=== PATIENT | male | born 1945 | race Caucasian/White ===

== ENCOUNTER 2018-11-19 13:39 | Inpatient (IN) ==
[2018-11-19 15:14] LABS: BASO# 0.03 X1000 (0.0-0.2); BASO% 0.5 % (0.0-0.8); EOS# 0.24 X1000 (0.0-0.7); EOS% 3.9 % (0.0-10.0); HEMATOCRIT 44.1 % (42.0-52.0); HEMOGLOBIN 14.8 g/dL (14.0-18.0); LYMPH# 2.08 X1000 (1.2-3.4); MCH 29.7 PG (27-31); MCHC 33.6 g/dL (33-37); MCV 88.4 FL (81-99); MONO# 0.85 X1000 (0.11-0.59); MONO% 13.9 % (1.7-9.3); MPV 10.9 FL (7.4-10.4); NEUT# 2.92 X1000 (1.4-6.5); NEUT% 47.7 % (42.2-75.2); PLT 142 X1000 (130-400); RBC 4.99 XMIL (4.7-6.1); RDW 12.7 % (11.5-14.5); WBC 6.12 X1000 (4.8-10.8)
[2018-11-19 15:26] LABS: INR 0.93; PROTIME 13.2 Seconds (11.0-16.0)
[2018-11-19 15:30] LABS: AGAP 10; BUN 16 mg/dL (8-22); C REACTIVE PROT QUANT 0.93 mg/L (0.00-5.00); CALCIUM 8.7 mg/dL (8.8-10.2); CHLORIDE 103 mmol/L (98-107); COSMO 278; CREATININE 0.7 mg/dL (0.7-1.2); ESTIMATED GFR > 60; GLUCOSE 94 mg/dL (70-104); POTASSIUM 4.1 mmol/L (3.5-5.1); SODIUM 139 mmol/L (136-145); TCO2 26 mmol/L (25-35)
[2018-11-19 16:22] LABS: SED RATE 4 mm/hr (0-15)
[2018-11-19] MEDS: DILAUDID IV PRN ×2 (16:31→20:03)
[2018-11-19] MEDS: NS 1,000 ML IV SCH (16:31)
[2018-11-19] MEDS: LEVAQUIN 500 MG/D5W 500 MG/100 ML IVPB IV SCH (20:03)
[2018-11-19] MEDS: LOVENOX SUBQ SCH (20:03)
--- NOTE | 2018-11-19 21:33 | HISTORY AND PHYSICAL ---
CHIEF COMPLAINT: Intractable left testicular pain since 3 weeks ago. HPI: He is 73-year-old white gentleman basically came in my office on 2018 and 11/11/2018. He is complaining of left testicular pain. He has moderate hydrocele. He was treated initially epididymitis. He was given anti-inflammatory and Levaquin. He fails to improve came back. Followup ultrasound of the scrotum showed no torsion, moderate hydrocele. The pain is just above the testicle. It is not reproducible and he was sent home on Ultracet and referred to Dr. Medley. Dr. Medley scheduled for outpatient surgery center for the further evaluation and in the meantime the surgery was canceled. Pain was excruciating. In between he was given [place] 1 pill 3 times daily and he has been taking 5 pills a day, not able to walk. The symptoms are out of proportion to the objective findings. The etiology is not clear. Subsequently was admitted to the hospital for pain control, IV antibiotics and further evaluation. Dr. Medley was consulted. As a result hospital admission was warranted. PAST MEDICAL HISTORY: BPH, hypertension, hyperlipidemia, metabolic syndrome, kidney stones, testicular hydrocele bilaterally left worse than the right side, elevated PSA biopsy was negative by Dr. Hedrick in 2012. PAST SURGICAL HISTORY: Sinus surgery, tonsillectomy, open gallbladder surgery, cataract surgery in left side. MEDICATIONS: Lipitor 40 daily, Levaquin 500 daily, losartan 50 daily. He was given [place] and sulindac, Flomax 0.4 daily. ALLERGIES: Not known. SOCIAL HISTORY: He is 2nd time for last 2 years 2 children, retired from [employer] no smoking no alcohol. FAMILY HISTORY: Father of cancer not known. Mom of heart failure at 70. HEALTH MAINTENANCE: Pneumococcal vaccine 2018, shingles 2014, last physical in March 2018, colonoscopy [address] Randall. REVIEW OF SYSTEMS: HEENT: No headache. No vision problem. No earache. No sore throat. Neck: No goiter. No lymphadenopathy. No bruit. Cardiopulmonary: No chest pain, shortness of breath, PND, orthopnea. GI: Open gallbladder surgery. No abdominal pain, nausea, vomiting. : No history of hesitancy, frequency dysuria. Left testicular pain, no skin rashes. No swelling of legs. No joint pain. Neuro: No focal symptoms or weakness. PHYSICAL EXAMINATION: Temperature is 97 degrees, pulse is 62, blood pressure is 142/50, on room air 98%. HEENT: Atraumatic, normocephalic. Pupils equal, reactive to light. TMs are normal. Nose and throat within normal limits. NECK: Supple. No lymphadenopathy. No goiter. CHEST: Bilateral air entry. HEART: Sounds are regular. BELLY: Soft, nontender, good bowel sounds. Left testicle pain with moderate hydrocele with transillumination present. NEURO: Nonfocal. INVESTIGATIONS: CBC is normal, sedimentation rate is 4, PT/INR is normal. SMA 7 is normal. CRP is normal. ASSESSMENT AND PLAN: 1. A 73-year-old white male admitted to the hospital intractable left testicle pain, etiology is not clear. Will also get a CT of the abdomen and pelvis. 2. IV fluids. 3. Ultrasound of the scrotum. 4. Deep vein thrombosis, gastrointestinal prophylaxis with Lovenox and Protonix. Will reconcile home medications. Dr. Medley consult and will follow up. cc: Tim Díaz MD MTDD
[2018-11-20] MEDS: BENADRYL IV PRN ×2 (06:28→23:31)
--- NOTE | 2018-11-20 07:20 | CONSULTATION ---
DATE OF CONSULTATION: 11/20/2018 CHIEF COMPLAINT: Left testicular pain for the past 1 month. HISTORY OF PRESENT ILLNESS: This is a 73-year old with BPH, hypertension, hyperlipidemia, history of nephrolithiasis, who presented to Urology office last week complaining of left scrotal pain. He had previously been seen by his primary care physician back in early October complaining of left testicular pain after having intercourse with his . The patient was given NSAIDs and Levaquin at that time. However, he never had any improvement in his pain and re- presented to his PCP's office on 11/11/2018, and was given pain medication, which still did not allow for complete resolution of his discomfort. He had an ultrasound performed at his PCP's office showed hydroceles bilaterally with maybe a possible right epididymal cysts. The patient was scheduled to undergo bilateral hydrocelectomy and removal of right spermatocele at the surgery center yesterday, but due to the weather the Surgery Center was closed, his procedure was canceled. His primary care doctor admitted him to the hospital for pain medication, antibiotics in preparation for operative intervention on . The patient was evaluated last night, and was having minimal discomfort at that time. This morning, patient denies any pain since approximately 8 o'clock last night, and he says it only hurts really when he is ambulatory or when he stands up. When he is lying down, he denies any pain. He denies any issues with voiding. Denies hematuria, dysuria, urgency, or frequency. Denies any fevers or chills or changes in scrotal swelling. PAST MEDICAL HISTORY: 1. BPH. 2. Hypertension. 3. Hyperlipidemia. 4. Nephrolithiasis. 5. Bilateral hydroceles. PAST SURGICAL HISTORY: 1. Sinus surgery. 2. Tonsillectomy. 3. Gallbladder surgery. 4. Cataract surgery. 5. Cystoscopy and bilateral retrograde pyelograms. MEDICATIONS: 1. Lipitor 40 mg daily. 2. Levaquin 500 mg daily. 3. Losartan 50 mg daily. 4. [place]. 5. Flomax 0.4 mg. DRUG ALLERGIES: No known drug allergies. SOCIAL HISTORY: Denies smoking or alcohol use. FAMILY HISTORY: Denies family history of prostate cancer or nephrolithiasis. REVIEW OF SYSTEMS: Twelve-point review of systems was performed. All pertinent positives and negatives in HPI. PHYSICAL EXAMINATION: Vital Signs: Nine, temperature 98.5 degrees, heart rate 65, blood pressure 151/68, oxygen saturation 96% on room air. General: No acute distress. Resting comfortably in bed. Alert and oriented x3. Pulmonary: Good respiratory effort without audible wheezing or rales. Cardiovascular: Regular rate and rhythm. No evidence of lower extremity edema. Abdomen: Soft, nontender, and nondistended. No palpable masses or hepatosplenomegaly. : Normal phallus and no evidence of any penile lesions, meatus orthotopic. Bilateral testicles palpated with moderate hydroceles bilaterally. Seems like right is greater than left. No tenderness to palpation of the scrotum. No palpable testicular tumors. No skin changes or tethering of his skin. HEENT: Normocephalic, atraumatic. Pupils equal, round, reactive to light. Skin: No obvious skin lesions or rashes. Neurologic: Gross motor and sensory intact. Musculoskeletal: No palpable musculoskeletal abnormalities. LABS: White blood cell count 6.1, hemoglobin 14.8, hematocrit 44.1, platelets 142,000. Sodium 139, potassium 4.1, chloride 103, bicarb 26, BUN 16, creatinine 0.7, glucose 94 , C-reactive protein 0.93. ASSESSMENT AND PLAN: Mr. Arias is a 73-year-old with hypertension, hyperlipidemia, nephrolithiasis, benign prostatic hypertrophy, and bilateral hydroceles, who presents in evaluation of his excruciation of left scrotal pain. The patient has been having pain for 4 to 6 weeks now after he had episode of intercourse with his . He has had known history of bilateral hydroceles for a number of years, and had been previously followed by Dr. Hedrick. The patient's pain seems to be well controlled overnight, and he denies any pain this morning. Has been having pain off and on for multiple weeks now, and was scheduled for bilateral hydrocelectomy yesterday, but the Surgery Center was closed due to weather. Ultimately, his primary care doctor admitted him to the hospital for pain control but seems like he has been doing well since admission. I gave him the option to proceed with bilateral hydrocelectomy today versus his scheduled time of having done tomorrow. I told him that it would likely be at 5 or 6 o'clock tonight, and the patient would like to wait until tomorrow, as he feels that his pain is better controlled today. Risks, benefits, and alternatives to surgical procedure were discussed with the patient. Will obtain a repeat scrotal ultrasound today in preparation for surgery tomorrow. All questions and concerns were addressed. We will continue to monitor. Please call with any questions or concerns. cc: MD Tim Ramey MD MTDPrudence
--- NOTE | 2018-11-20 07:59 | Diag Imaging Result Doc PS360 ---
EXAM: US SCROTUM 11/20/2018 HISTORY: Left Scrotal Pain. Bilateral hydroceles TECHNIQUE: Scrotal ultrasound COMMENT: There are bilateral hydroceles. There are no testicular masses and there is color Doppler flow in both testicles. There are subcentimeter cysts in the right epididymis largest measuring 6 mm in greatest dimension. There are no previous studies. IMPRESSION: Bilateral hydroceles. Right epididymal cysts. Electronically signed by Babak Norton 11/20/2018 7:58 AM
[2018-11-20] MEDS ORDERED: AMBIEN PO PRN (08:17)
--- NOTE | 2018-11-20 08:53 | Diag Imaging Result Doc PS360 ---
CT ABDOMEN/PELVIS W/O CONTRAST - 11/20/2018 INDICATION: Left pelvis pain COMPARISON: None FINDINGS: The lung bases are clear and the heart size is normal. There are a couple small scattered cysts in the liver. There is a relatively large left renal cyst measuring 10 cm. There is a small nonobstructing left renal stone measuring 3 mm. No hydronephrosis or hydroureter. Urinary bladder is collapsed. Prostate gland is somewhat large measuring 5.3 x 6.4 cm. Rectum is normal. No bowel obstruction or inflammation. Normal appendix. There are moderate degenerative changes of the spine. No acute or suspicious bony lesion. IMPRESSION: Nonobstructing left renal stone. Large left renal cyst. Large volume prostate gland. No acute process. This exam was performed using automated exposure control, adjustment of mA or kV according to patient size, and/or use of iterative reconstruction technique Electronically signed by Jung Mackenzie 11/20/2018 8:51 AM
[2018-11-20] MEDS: COZAAR PO SCH (08:59)
[2018-11-20] MEDS: DILAUDID IV PRN ×4 (08:59→19:27)
--- NOTE | 2018-11-20 18:40 | PROGRESS NOTE ---
DATE: 11/20/2018 SUBJECTIVE: The patient has intractable left testicular pain. Findings are out of proportion. He has been taking the pain medicines, asking insomnia for sleep tonight. EXAMINATION: Temperature 98 degrees. Vitals are stable.HEENT: Within normal limits. Neck: Supple. Chest: Clear. Heart: Sounds are regular. Abdomen: Belly is soft and obese. Right upper quadrant scar present. INVESTIGATIONS: CBC shows SMA 7 is normal. Ultrasound of the testicles show bilateral hydrocele and right epididymal cyst. CT scan of the abdomen and pelvis with nonobstructive left renal stone. Large left renal cyst, large volume of prostate. No acute process noted. ASSESSMENT AND PLAN: Left testicular pain, etiology was not clear. Waiting for hydrocelectomy. Continue IV antibiotics, IV fluids, DVT prophylaxis with Lovenox. Insomnia. Ambien as needed. LEVEL OF DOCUMENTATION: 25 minutes. cc: Tim Díaz MD
[2018-11-20] MEDS: NS 1,000 ML IV SCH ×2 (19:41→22:15)
[2018-11-20] MEDS: LEVAQUIN 500 MG/D5W 500 MG/100 ML IVPB IV SCH (20:00)
[2018-11-20] MEDS: LOVENOX SUBQ SCH (20:00)
[2018-11-20] MEDS: AMBIEN PO PRN (22:14)
[2018-11-21] MEDS: DILAUDID IV PRN ×4 (03:56→20:19)
[2018-11-21] MEDS ORDERED: BACITRACIN OINTMENT ONE (07:54)
[2018-11-21] MEDS ORDERED: KEFZOL 1 GM/D5W 1 GM/50 ML IVPB ONE (07:56)
[2018-11-21] MEDS ORDERED: MARCAINE 0.5% PF ONE (07:57)
--- NOTE | 2018-11-21 08:02 | PROGRESS NOTE ---
DATE: 11/21/2018 SUBJECTIVE: The patient has been n.p.o. at midnight in preparation for surgery today. The patient denies any pain this morning. He states that his pain has been relatively well controlled over the past 24 hours. He states that he had a couple episodes yesterday of mild twinges of pain. The patient underwent a scrotal ultrasound, as well as a CT scan, yesterday. The scrotal ultrasound showed stable appearance of bilateral hydroceles and a possible right epididymal cyst. CT scan showed a large renal cyst measuring approximately 10 cm in the left kidney, as well as a smaller cyst adjacent to this. The patient denies any flank pain, nausea, or vomiting. OBJECTIVE: Vital Signs: Temperature 97.7 degrees, heart rate 66, blood pressure 134/73, oxygen saturation 97% on room air. General: No acute distress. Resting comfortably in bed. Alert, oriented x3. Respiratory: Good respiratory effort without audible wheezing or rales. Abdomen: Soft, nontender, nondistended. No palpable masses. Genitourinary: No suprapubic tenderness. No CVA tenderness. Bilateral testicles palpated with hydroceles bilaterally, right greater than the left. No tenderness to palpation of the scrotum. No skin changes or erythema. ASSESSMENT AND PLAN: Mr. Arias is a 73-year-old with a history of hypertension , hyperlipidemia, nephrolithiasis, benign prostatic hypertrophy, and bilateral hydroceles who presents for evaluation of excruciating left scrotal pain. The patient has had pain off and on for the past several weeks. However, since he has been admitted, his pain seems to be better controlled. The patient was made nothing by mouth at midnight last night in preparation for surgery today. Discussed with him the risks, benefits, alternatives to surgical procedure, and we plan to do bilateral hydrocelectomy with possible right spermatocelectomy, as well as cystoscopy. I reviewed with him his scrotal ultrasound, as well as CT findings, and the patient expressed understanding. We will proceed with surgery today. Likely, he will be able to go home after his procedure. Please call with questions or concerns. cc: MD Tim Ramey MD MTDD
--- NOTE | 2018-11-21 11:02 | OPERATIVE NOTE ---
PROCEDURE DATE: 11/21/2018 PREOPERATIVE DIAGNOSES: 1. Bilateral hydroceles. 2. Left scrotal pain. POSTOPERATIVE DIAGNOSES: 1. Bilateral hydroceles. 2. Left scrotal pain. 3. Right cord lipoma. PROCEDURES PERFORMED: 1. Cystoscopy. 2. Bilateral hydrocelectomy. 3. Excision of right cord lipoma. SURGEON: Danie Medley MD. CONTINUOUS MINING MACHINE LODE MINER: None. COMPLICATIONS: None. BLOOD LOSS: 20 mL. SPECIMENS REMOVED: Right cord lipoma. DRAINS: None. ANESTHESIA: LMA. OPERATIVE FINDINGS: The patient had bilateral hydroceles that were moderate in size with right greater than left. Testicle appeared to be normal. There was a small epididymal appendix bilaterally, which were removed. On the right side, he did have a cord lipoma that was dissected off the cord and removed. Hydrocele sacs were quite small and with not enough room to adequately excise them, these were just sutured closed around the cord loosely to decrease the risk of recurrence of his hydroceles. The patient had a cystoscopy today which showed a normal urethra. No evidence of any stricture disease or papillary lesions. Entering into the bladder, the patient had trilobar hypertrophy of the prostate with a moderate amount of obstruction. Entering into the bladder, the patient had trabeculation and small cellules. No evidence of any diverticulum or papillary lesions throughout the bladder. Both ureteral orifices were visualized effluxing clear yellow urine. The patient's bladder was drained at the end of the procedure and he was transferred back to the floor. INDICATION FOR PROCEDURE: Mr. Arias is a 73-year-old who presented to the Urology Clinic with a 4- 6 week history of left scrotal pain. He was treated by his primary care physician with antibiotics for possible epididymal orchitis, as well as anti-inflammatories, which did not assist in his pain. He was also given narcotics, which again did not help with his pain. The patient was ultimately admitted to the hospital on Sunday for pain control. However, since admission, his pain has been less but he has also been less ambulatory since then. The patient was originally scheduled to undergo surgery on Sunday at the Surgery Center but due to weather , this was canceled. The patient was rescheduled for surgery on at the hospital. In talking with the patient, I reviewed the procedure, risks, benefits, and alternatives to surgical intervention, and the patient elected to proceed. DESCRIPTION OF PROCEDURE: After informed consent was obtained, the patient was brought to the operating room and placed on the operating table in the supine position. The patient was previously shaved and received preoperative antibiotics and underwent LMA placement. He was prepped and draped in the usual sterile fashion. A preoperative time-out was performed with all parties in agreement including anesthesia, surgical and nursing staff. At which time the bilateral hydroceles were palpated, right greater than left. An incision was made in the median raphe after being marked out using a 15 blade to excise through the overlying layers of the scrotal wall and dartos, dissecting out the left hydrocele first using a knife and electrocautery. This was dissected down until we were able to completely retract the hydrocele sac and externalize this into the operative field. A small puncture was then made in the hydrocele sac and drained of all fluids. His hydrocele was mild to moderate in size on the left. I was able to open up the hydrocele sac enough that we visualized the testicle. The patient had a small epididymal appendage which was cauterized off. There was a minimal hydrocele sac present and I was unable to truly remove any of the sac. I did cauterize the edges and then performing a Lord technique, closed the hydrocele sac on itself loosely to prevent compromising the cord, using a 3-0 chromic suture. Hemostasis was then obtained with no evidence of any active bleeding. The wound was then irrigated. The testicle was reinserted back into the left hemiscrotum with the lateral sulcus present in the lateral portion of the scrotum. Following this, attention was placed to the right side. A similar procedure was performed using the knife to cut through the overlying scrotal tissues until we were down to the hydrocele sac. This hydrocele sac was slightly larger. It was able to be drained with a small tano incision into the hydrocele sac itself was made to allow for drainage. Following this, a small lipoma was seen coming medial from the right cord. This was dissected away, cauterizing any feeding blood vessels until it was removed from all the way down to the medial portion of the cord. Following complete removal, our attention was then placed to closing the hydrocele sac. Again, minimal hydrocele sac was seen on the right side. Subsequently, I performed another Lord procedure on this side. This was closed loosely and hemostasis was obtained. The testicle was then reinserted with the lateral sulcus in the lateral portion of the hemiscrotum. The subscrotal tissue was closed in an interrupted fashion with 3-0 Vicryl, closing the lateral portions of the incision with the median septa. Once these were all closed, the skin was then closed with a chromic and skin adhesive was applied over top of the wound. Following this, a flexible cystourethroscope was inserted through the urethra, showing normal caliber urethra, no stricture disease. Entering into the bladder, the entirety of the bladder was inspected. The patient did have trilobar hypertrophy of the prostate with a moderate amount of obstruction. There was no evidence of any papillary tumors in the bladder. There were some cellules as well as trabeculations present. Following complete evaluation of the bladder, the patient's bladder was drained with a 16-Pashto red rubber catheter. The patient was then awoken and was taken to recovery in stable condition. DISPOSITION: Return to the floor. If remains stable can be discharge later today. cc: MD Tim Ramey MD MTDD
[2018-11-21] MEDS: COZAAR PO SCH (11:06)
[2018-11-21] MEDS: NORCO-7.5 PO PRN ×3 (13:17→23:31)
[2018-11-21] MEDS: NS 1,000 ML IV SCH (15:49)
--- NOTE | 2018-11-21 19:38 | PROGRESS NOTE ---
DATE: 11/21/2018 SUBJECTIVE: The patient is out of room, went to surgery this morning. Postoperatively examined 2nd time. He is resting and findings noted. OBJECTIVE: Vital signs: Temperature is 98 degrees, vitals are stable. HEENT: Exam within normal limits. Neck: Supple. No lymphadenopathy. Chest: Clear. Heart: Sounds are regular. Abdomen: Belly is soft, nontender. Good bowel sounds. Neurological: No neurological deficits. DIAGNOSTIC STUDIES: All the workup was negative. CT findings were discussed with the patient. ASSESSMENT AND PLAN: 1. Left testicular pain. Etiology was not clear. Status post hydrocelectomy. If continues to have pain, consider MRI of lumbar spine to rule out L1 pathology. If things will not get better, I told them I am not going to give any more pain medicines. We will consider other options and a second opinion. 2. Insomnia. Continue on Ambien for sleep and Tylenol P.M. 3. We will see the his pain level tomorrow. LEVEL OF DOCUMENTATION: 25 minutes. cc: Tim Díaz MD
[2018-11-21] MEDS: LEVAQUIN 500 MG/D5W 500 MG/100 ML IVPB IV SCH (20:19)
[2018-11-21] MEDS: LOVENOX SUBQ SCH (20:20)
[2018-11-21] MEDS: PERIDEX MT SCH (20:21)
[2018-11-21] MEDS: AMBIEN PO PRN (21:27)
[2018-11-21] MEDS: BENADRYL IV PRN (23:41)
[2018-11-22] MEDS: NS 1,000 ML IV SCH (05:00)
[2018-11-22] MEDS: NORCO-7.5 PO PRN ×2 (05:46→15:05)
--- NOTE | 2018-11-22 08:18 | PROGRESS NOTE ---
DATE: 11/22/2018 SUBJECTIVE: Postoperative day 1 from bilateral hydrocelectomy, lipoma excision of the right cord, and cystoscopy. Overall, the patient states he is doing well. He denies significant pain. He has been able to urinate without issue. He denies any radiating pain and overall states he feels better today than yesterday. The patient is still concerned that the scrotal pain may return. OBJECTIVE: Vital signs: Temperature 98.5 degrees, heart rate 81, blood pressure 135/44, oxygen saturation 96% on room air. General: No acute distress. Resting comfortably in bed. Respiratory: Good respiratory effort without audible wheezing or rales. Cardiovascular: No evidence of tachycardia with regular rhythm. Abdomen: Soft, nontender, nondistended. No palpable masses. Genitourinary: No CVA tenderness. No suprapubic tenderness. Uncircumcised phallus. Scrotal exam does show some bruising present near the midline incision and both testicles palpated and are normal. However, there is some small amount of hematoma bilaterally, most prominent on the right side. The patient is not wearing scrotal support as directed. The patient did have some tenderness to palpation of testicles and scrotum. LABORATORY DATA: None. ASSESSMENT AND PLAN: Mr. Arias is a 73-year-old with hypertension, hyperlipidemia, nephrolithiasis, benign prostatic hypertrophy, and bilateral hydroceles, who is postop day 1 from bilateral hydrocelectomy, excision of right cord lipoma, and cystoscopy. Overall, the patient states he is doing better. However, on exam, he does have some tenderness to palpation of his scrotum. He does have a small amount of swelling present, which appears to be normal postoperatively. The patient does have some bruising as well of the scrotal skin, which appears to be normal for his stage of recovery. Recommend that he continues to have some scrotal support as this would help with any swelling and for resolution of the hematomas that are present at the base of the scrotum. Clinically, the patient denies significant pain this morning. He did have some tenderness to palpation on my exam, which seemed to be appropriate postoperatively. The patient remains concerned that the scrotal pain will again return. I told him that we can continue to monitor and that he would definitely have some pain in the acute setting. Dr. Díaz was considering a lumbar MRI if his pain did not improve. If the patient continues to have pain and discomfort, it would be a viable option to see if there is a lumbosacral musculoskeletal or neuropathic etiology leading to his pain. Will continue to monitor. Please call with questions or concerns. cc: MD Tim Ramey MD MTDD
[2018-11-22] MEDS: COZAAR PO SCH (08:29)
[2018-11-22] MEDS: PERIDEX MT SCH (08:30)
[2018-11-22] MEDS: DILAUDID IV PRN (10:31)
[2018-11-22 12:29] VITALS: BP 142/53
[2018-11-22] MEDS ORDERED: SENOKOT PO SCH (21:00)
[2018-11-22] MEDS ORDERED: COLACE PO SCH (21:00)
--- NOTE | 2018-11-24 23:15 | DISCHARGE SUMMARY ---
ADMISSION DATE: 11/19/2018 DISCHARGE DATE: 11/22/2018 DISCHARGING DIAGNOSIS: Intractable left testicle pain due to low-grade epididymitis. SECONDARY DIAGNOSES: 1. Benign prostatic hypertrophy. Biopsy was negative. 2. Hypertension. 3. Hyperlipidemia. 4. Metabolic syndrome. 5. Left-sided kidney stone. 6. Left renal cyst. 7. Bilateral hydroceles, left side worse than right side. 8. 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 CONSULTS: Danie Medley MD. PROCEDURES: 1. Bilateral hydrocelectomy. 2. Excision of the lipoma. BRIEF HISTORY: Please see the H and P that was done on 11/19/2018. In brief, he is a 73-year-old white gentleman who was treated outpatient for the last 1 month with intractable left testicle pain, unable to improve after treating with epididymitis. Ultrasound was negative for torsion of the testis. The pain was so excruciating, he had been taking 5 [place] pills on a daily basis, not able to ambulate. The pain was not reproducible. He was seen by Dr. Medley who was going to do hydrocelectomy and excision of the lipoma on the right side. He was not able to go for outpatient surgery. As a result, hospital admission was warranted. HOSPITAL COURSE: During the hospital course, he was given IV pain medicines, IV antibiotics. During the workup, symptoms were out of proportion to the objective findings. I was not able to explain his intractable pain. I also did other causes for referred pain which were essentially unremarkable. The patient had hydrocelectomy and excision of the lipoma on the right side of the testis. He had slight bruising and hematoma noted on the right side. The patient was advised to do elevation and continue outpatient treatment. LABORATORIES: CBC is normal. PT/INR is normal. SMA-7 is normal. Urine cultures were negative. IMAGING STUDIES: Scrotal ultrasound: Bilateral hydrocele, right epididymal cyst. CT scan of the abdomen and pelvis: Nonobstructing left renal stone, large left renal cyst, large lower lobe of the prostate. DISPOSITION AND DISCHARGE INSTRUCTIONS: The patient was discharged home with the following instructions: Cozaar 50 mg daily, Lipitor 40 daily, Levaquin 500 daily for 10 days, [place] for p.r.n. pain. Follow up with Dr. Medley next week. cc: Tim Díaz MD
== END 2018-11-22 18:35 | disposition home or self-care (01) | DRG 711 ==
LOC: DIRADM 13:39 → 4N 14:15
PROVIDERS: ADMIT Internal Medicine; ATTEND Internal Medicine
CPT/HCPCS: 74176; 76870; 80048; 85025; 85610; 85651; 86140; 87088; 88304; 94761; 94799; A9270; J0690; J1170; J1200; J1650; J1956; J7030; S0020